=== PATIENT | male | born 1995 | race Caucasian/White ===

== ENCOUNTER 2020-03-04 02:54 | Outpatient (CLI) | payer OTHER, SELFPAY ==
[2020-03-04 15:23] LABS: Abs Immature Grans 0.04 k/cumm (0.0-0.09); Absolute Basophil Count 0.02 k/cumm (0.0-0.2); Absolute Eosinophil Count 0.17 k/cumm (0.0-0.7); Absolute Monocyte Count 0.64 k/cumm (0.11-0.7); Absolute Neutrophil Count 4.14 k/cumm (1.2-6.7); Basophils % 0.3; Eosinophils % 2.2; HCT 43.7 % (40.0-50.0); HGB 14.3 g/dL (13.5-17.5); Immature Grans % 0.5 %; Mean Corp. HGB Concentration 32.7 g/dL (32.0-36.0); Mean Corpuscular Hemoglobin 28.7 pg (27.0-33.0); Mean Corpuscular Volume 87.6 fL (80-95); Mean Platelet Volume 8.7 fL (8.0-11.0); Monocytes % 8.3; Neutrophils % 53.7; Platelet Count 239 x1000/uL (130-400); RBC 4.99 m/cumm (4.50-6.00); RBC Distribution Width 12.6 % (11.8-14.1); White Blood Cell Count 7.71 k/cumm (4.4-10.8)
[2020-03-04 15:55] LABS: Bilirubin Negative (Negative); Blood Negative (Negative); Clarity Clear (Clear); Glucose Negative (Negative); Ketones Negative (Negative); Leukocyte Esterase Negative (Negative); Nitrite Negative (Negative); Specific Gravity >= 1.030 (1.005-1.025); Urobilinogen 0.2 EU/dL (Up TO 0.2); pH 6.5 (5-8)
[2020-03-05 10:05] LABS: HIV-1/2 Ag & Ab Screen Negative (Negative)
[2020-03-05 14:04] LABS: Chlamydia Result Negative (Negative); GC Result Negative (Negative)
== END 2020-03-04 03:14 ==
PROVIDERS: PCP Physician Assistant Medical; Visit Provider Physician Assistant
DX: Z00.00 Encounter for general adult medical examination without abnormal findings (principal); Z11.4 Encounter for screening for human immunodeficiency virus [HIV]; Z13.0 Encounter for screening for diseases of the blood and blood-forming organs and certain disorders involving the immune mechanism; Z11.3 Encounter for screening for infections with a predominantly sexual mode of transmission; R82.998 Other abnormal findings in urine
CPT/HCPCS: 36415; 87389; 87491; 87591; 81003; 85025; 87177

== ENCOUNTER 2020-03-12 14:31 | Outpatient (REF) | payer MEDICAID, SELFPAY ==
[2020-03-13 17:44] LABS: COVID-19 RT-PCR UVMMC Result Negative (Negative)
== END 2020-03-12 14:51 ==
LOC: NCHCN 14:31
PROVIDERS: PCP Physician Assistant Medical; Visit Provider Physician Assistant
DX: J06.9 Acute upper respiratory infection, unspecified (principal)
CPT/HCPCS: U0003

== ENCOUNTER 2020-06-04 16:27 | Outpatient (REF) | payer MEDICAID, SELFPAY ==
[2020-06-07 17:16] LABS: Patient Race White; SARS-CoV-2 RNA Undetected (Undetected); SARS-CoV-2 Specimen Source Nasal
== END 2020-06-04 16:47 ==
LOC: NCHCN 16:27
PROVIDERS: PCP Physician Assistant Medical; Visit Provider Physician Assistant
DX: Z20.828 Contact with and (suspected) exposure to other viral communicable diseases (principal)
CPT/HCPCS: U0003

== ENCOUNTER 2020-07-23 18:44 | Outpatient (REF) | payer MEDICAID, SELFPAY ==
[2020-07-28 02:31] LABS: Patient Race White; SARS-CoV-2 RNA Undetected (Undetected)
== END 2020-07-23 19:04 ==
LOC: NCHCN 18:44
PROVIDERS: PCP Physician Assistant Medical; Visit Provider Nurse Practitioner Family
DX: Z20.828 Contact with and (suspected) exposure to other viral communicable diseases (principal)
CPT/HCPCS: U0003

== ENCOUNTER 2021-09-04 09:03 | Emergency (ER) | payer BC, MEDICAID, SELFPAY ==
[2021-09-04 09:07] VITALS: BP 139/72; PULSE 80; RESP 16; TEMP 36.7; O2SAT 99
--- NOTE | 2021-09-04 09:28 | ED.GENADUL_ITS ---
Discharge Plan Disposition Patient Disposition: HOME Condition: Stable Discharge Details Chief Complaint: Laceration Clinical Impression: Laceration of thumb Primary Care Provider: Lonnie Munroe ED Provider: Austin Cortes Home Meds and New Rx's Prescriptions: No Action No Known Home Meds RF: 0 Discharge Instructions Instructions: Laceration (ED) Additional Instructions: Thumb laceration repaired without difficulty. Please keep the area clean and dry, change antibiotic dressing daily. Wear splint to avoid tearing out the sutures. Rest, elevate, [id number] Tylenol and/or Motrin as directed for discomfort. Sutures removed in approximately 10 days. Please watch for new or worsening symptoms and return to the ER for any concerns. Medical Decision Making 26-year-old gentleman [id number] presents for a left thumb laceration. Laceration is clean, bleeding is controlled, no signs of foreign body. I am able to visualize the base of the wound. I do not believe x-ray is required to rule out foreign body. Patient has no suspicion for foreign body. Tetanus status is up-to-date. Laceration will need repair. Neuro, vascular, tendon intact Laceration repaired without difficulty. Patient tolerated well. The wound was then cleaned and dressed in a thumb splint applied. Standard discharge and return precautions provided. This documentation was generated using [employer] dictation system, please disregard any oddities of phrase or misspellings. Medical Records Medical records reviewed: Yes I reviewed the patient's medical records. HPI General Mode of arrival: ambulatory . Date/Time Provider Initiated Documentation: 09/04/21 09:04 . Limitations to Documentation: no limitations . Information obtained by: patient . HPI Narrative: This is a 26-year-old male, [id number], denies any significant past medical history, presenting to the ER today for a left thumb laceration that occurred just prior to arrival. Patient reports that he accidentally cut his thumb with a clean pocket knife while unloading his [employer] tree. Reports the pain is mild, dull ache. Denies any other injury, numbness, tingling, weakness. Has not taken any medication for his symptoms. Tetanus status is up-to-date. Related Data Home Medications Medication Instructions Recorded Confirmed Unknown [No Known Home Meds] 09/04/21 09/04/21 Allergies Allergy/AdvReac Type Severity Reaction Status Date / Time ibuprofen Allergy Skin Rash Unverified 09/04/21 09:11 General Stated Complaint: Laceration DUSTY: 4 Review of Systems Constitutional Constitutional: Denies weakness Musculoskeletal Musculoskeletal: Denies arthralgias, Denies numbness, Denies stiffness and Denies tingling Integumentary/Breasts Skin/Breast: Denies erythema Neurologic Neurologic: Denies numbness, Denies tingling and Denies weakness PFSH All Active Problems (Updated 09/04/21 @ 09:58 by JONES Andrade) Laceration of thumb (Acute) Social History Smoking/Tobacco Use Status: Never Smoking risk assessment performed?: Yes Alcohol Intake: current Alcohol Intake frequency: a few times a month Drug use: Never Do you feel safe at home: Yes Do you feel safe in your relationship?: Yes Exam Const General: cooperative, healthy appearing, comfortable and no acute distress Orientation: alert and awake HENMT Head: normal to inspection, normocephalic and atraumatic Eyes General: appearance normal, both eyes and all related structures Conjunctivae: conjunctivae normal Neck Neck: normal visual inspection, trachea midline and supple Resp Effort & Inspection: normal respiratory effort and able to speak in complete sentences Cardio Rate: regular rate Rhythm: regular rhythm Skin General skin exam: no rashes or lesions noted Neuro General: patient alert, patient awake, moves all extremities and no focal motor deficits Cognition: normal cognition Speech: speech normal Gait: normal gait Motor: muscle tone normal throughout Sensory Exam: no sensory deficits noted Extrem General: full ROM and capillary refill normal Hand/finger images: 1. 2 cm, slightly irregular laceration. Neuro, vascular, tendon intact. 5-5 strength. Bleeding controlled. No foreign body. Only mild discomfort to pal pation. Normal capillary refill and radial pulse. Psych Appearance: grossly normal Mental Status: mental status grossly normal Course Vital Signs Vital signs: Vital Signs Temperature 36.7 C 09/04/21 09:07 Pulse 80 09/04/21 09:07 Respiratory Rate 16 09/04/21 09:07 Blood Pressure 139/72 09/04/21 09:07 Pulse Oximetry 99 09/04/21 09:07 Temperature 36.7 C 09/04/21 09:07 Temperature Source Skin 09/04/21 09:07 Pulse 80 09/04/21 09:07 Respiratory Rate 16 09/04/21 09:07 Respiratory Effort 09/04/21 09:12 Blood Pressure 139/72 09/04/21 09:07 Blood Pressure Position Sitting 09/04/21 09:07 Pulse Oximetry 99 09/04/21 09:07 Oxygen Delivery Method Room Air 09/04/21 09:07 Oxygen Flow Rate 0 09/04/21 09:07 Pain Level 2 09/04/21 09:07 Procedures Laceration Laceration 1: Site: hand Side (If applicable): left Size (cm): 2 Description: irregular and clean Depth: simple, single layer Local Anesthetic: Lidocaine 1% Amount of anesthesia used (mL): 3 Pre-repair: wound explored, irrigated extensively and deep structures intact Skin layer closed with: nylon Size (cm): 4-0 Number of sutures: 5 Technique: simple, interrupted PAWSS Have you Been Recently Intoxicated or Drunk Within the Last 30 days?: No Have you Ever Experienced Previous Episodes of Alcohol Withdrawal?: No Have you ever Experienced Withdrawal Seizures?: No Have you ever Experienced Delirium Tremens(DT)s?: No Have you ever undergone Alcohol Rehabilitation Treatment (i.e, inpt ot outpatient treatment programs)?: No Have you ever Experienced Blackouts?: No Have you ever Combined Alcohol with any other Substance of Abuse during the last 90 days?: No Positive Blood Alcohol level on Presentation? [PCS.BAL]: No Evidence of Increased Autonomic Activity (i.e. HR>120, tremor, sweating, agitation, nausea)?: No Result: 0
== END 2021-09-04 10:06 | disposition home or self-care (01) ==
PROVIDERS: Emergency Provider Physician Assistant; PCP Physician Assistant Medical
DX: S61.012A Laceration without foreign body of left thumb without damage to nail, initial encounter (principal); W26.0XXA Contact with knife, initial encounter
CPT/HCPCS: 12001

== ENCOUNTER 2021-09-14 10:13 | Emergency (ER) | payer BC, MEDICAID, SELFPAY ==
[2021-09-14 10:16] VITALS: BP 134/66; PULSE 77; RESP 12; TEMP 36.3; O2SAT 98
--- NOTE | 2021-09-14 10:40 | ED.GENADUL_ITS ---
Discharge Plan Disposition Patient Disposition: HOME Condition: Good Discharge Details Clinical Impression: Encounter for removal of sutures Primary Care Provider: Migel Kemp ED Provider: Cristal Daen Home Meds and New Rx's Prescriptions: No Action No Known Home Meds RF: 0 Discharge Instructions Additional Instructions: Keep Steri-Strips in place and dry for at least 5 more days, you may trim the Steri-Strips as they maria e, do not attempt to peel them off and try to leave them in place as long as possible as well with healing You may take ibuprofen and Tylenol as needed for pain Do not apply anything topically until the wound yellow scab is formed Please return should he develop fever, chills, spreading redness,or with any new or worsening complaints Referrals: Migel Kemp [Primary Care Provider] - Medical Decision Making Sutures removed by me, however the skin was inverted and the wound dehisced Wound was cleansed and Steri-Strips were applied without incident Apologized to the patient and return precautions were discussed No evidence of secondary infection Return precautions discussed and patient expressed understanding Medical Records Medical records reviewed: Yes I reviewed the patient's medical records. HPI General Mode of arrival: ambulatory . Date/Time Provider Initiated Documentation: 09/14/21 10:22 . Limitations to Documentation: no limitations . Information obtained by: patient . HPI Narrative: This 26-year-old male presents with suture removal from his left thumb. He states that he accidentally cut his finger approximately 10 days prior to arrival. Has history of that time. His tetanus to date. He denies any strength or sensation change. Related Data Home Medications Medication Instructions Recorded Confirmed Unknown [No Known Home Meds] 09/04/21 09/14/21 Allergies Allergy/AdvReac Type Severity Reaction Status Date / Time ibuprofen Allergy Skin Rash Unverified 09/14/21 10:21 General Stated Complaint: SutureRem DUSTY: 5 Review of Systems Narrative: Review of systems obtained x3 and negative aside from indication in HPI PFSH All Active Problems (Updated 09/14/21 @ 10:42 by JONES Bowman) Laceration of thumb (Acute) Encounter for removal of sutures (Acute) Social History Smoking/Tobacco Use Status: Never Smoking risk assessment performed?: Yes Alcohol Intake: current Alcohol Intake frequency: a few times a month Drug use: Never Substance use type: does not use Do you feel safe at home: Yes Do you feel safe in your relationship?: Yes Exam Extrem Other: Left thumb with laceration to proximal digit along the dorsal aspect neurovascularly intact, small area of numbness circumferentially around the laceration site Course Vital Signs Vital signs: Vital Signs Temperature 36.3 C L 09/14/21 10:16 Pulse 77 09/14/21 10:16 Respiratory Rate 12 09/14/21 10:16 Blood Pressure 134/66 09/14/21 10:16 Pulse Oximetry 98 09/14/21 10:16 Temperature 36.3 C L 09/14/21 10:16 Temperature Source Oral 09/14/21 10:16 Pulse 77 09/14/21 10:16 Respiratory Rate 12 09/14/21 10:16 Respiratory Effort Non-Labored 09/14/21 10:20 Blood Pressure 134/66 09/14/21 10:16 Blood Pressure Position Sitting 09/14/21 10:16 Pulse Oximetry 98 09/14/21 10:16 Oxygen Delivery Method Room Air 09/14/21 10:16 Oxygen Flow Rate 0 09/14/21 10:16 Pain Level 1 09/14/21 10:16
[2021-09-14 10:45] VITALS: BP 134/66; PULSE 77; RESP 12; TEMP 36.3; O2SAT 98
== END 2021-09-14 10:46 | disposition home or self-care (01) ==
PROVIDERS: Emergency Provider Physician Assistant; PCP Physician Assistant
DX: S61.012D Laceration without foreign body of left thumb without damage to nail, subsequent encounter (principal); W26.0XXD Contact with knife, subsequent encounter; Z48.02 Encounter for removal of sutures; T81.30XA Disruption of wound, unspecified, initial encounter
CPT/HCPCS: 99281

== ENCOUNTER 2021-11-29 14:58 | Outpatient (REF) | payer BC, MEDICAID, SELFPAY ==
[2021-11-29 15:07] LABS: Anion Gap 10.5 mmol/L (3-11); BUN 13 mg/dL (7-18); CO2 25.5 mmol/L (21.0-32.0); CREATININE 0.8 mg/dL (0.70-1.30); Calcium 8.8 mg/dL (8.5-10.1); Calculated LDL 132 mg/dL (<100); Chloride 103 mmol/L (98-107); Cholesterol 230 mg/dL (<200); Glucose 73 mg/dL (74-106); HDL Cholesterol 80 mg/dL (40-60); Potassium 4.3 mmol/L (3.5-5.1); Sodium 139 mmol/L (136-145); Triglyceride 90 mg/dL (<150)
== END 2021-11-29 14:59 | disposition home or self-care (01) ==
LOC: NCHCN 14:58
PROVIDERS: PCP Physician Assistant; Visit Provider Physician Assistant
DX: Z00.00 Encounter for general adult medical examination without abnormal findings (principal)
CPT/HCPCS: 80048; 80061